=== PATIENT | female | born 1990 | race Caucasian/White ===

== ENCOUNTER 2018-01-04 10:26 | Emergency (ER) | payer BC, OTHER ==
[2018-01-04 10:57] VITALS: BP 120/75
--- NOTE | 2018-01-04 11:27 | UC ---
Nausea/Vomiting/Diarrhea HPI - HPI Summary HPI Summary: 27-year-old female presents with 5 day history of watery diarrhea after returning from travel to [facility]. She is reporting approximately 6-7 episodes of foul-smelling diarrhea daily. Tends to be worse in the morning and evenings. She [place] she did drink some water from a picture that she cannot confirm was from a bottled source and also reports eating salads that may have been washed in tap water. No recent antibiotic use. Associated with some mild lower abdominal cramping. Denies fever, chills, nausea, vomiting, blood in stools, dysuria, frequency, or urgency. She has used [id number] Imodium and Pepto-Bismol without relief in symptoms. Last menstrual period was approximately 2 weeks ago. She has been sexually active. Does not use any contraception other than the pullout method. - History of Current Complaint Chief Complaint: UCGI Stated Complaint: ABDOMINAL PAIN,DIARRHEA Time Seen by Provider: 01/04/18 11:01 Hx Obtained From: Patient Hx Last Menstrual Period: "two weeks ago" Onset/Duration: Gradual Onset, Lasting Days Severity Initially: Mild Severity Currently: Mild Pain Intensity: 0 Location: Other - lower abdominal Character: Cramping Aggravating Factor(s): Nothing Alleviating Factor(s): Nothing Diarrhea Presence: Yes Diarrhea Frequency: Other - 6-7 episodes daily Diarrhea Characteristics: Watery, Malodorous - Allergies/Home Medications Allergies/Adverse Reactions: Allergies Allergy/AdvReac Type Severity Reaction Status Date / Time No Known Allergies Allergy Verified 01/04/18 10:47 Home Medications: Home Medications Loperamide CAP* [Imodium CAP*] 1 - 2 mg PO SEE INSTRUCTIONS PRN 01/04/18 [ History Confirmed 01/04/18] Faucett-3 Fatty Acids/Fish Oil [Fish Oil 1,000 mg Softgel] 1 each PO DAILY [History Confirmed 01/04/18] Vitamin THERAPEUTIC TAB* [Theragran TAB*] 1 tab PO DAILY 01/04/18 [History Confirmed 01/04/18] PMH/Surg Hx/FS Hx/Imm Hx Previously Healthy: Yes - Surgical History Surgical History: None - Family History Known Family History: Positive: Other - Social History Occupation: Employed Full-time Lives: With Family Alcohol Use: Weekly Substance Use Type: None Smoking Status (MU): Never Smoked Tobacco Review of Systems Constitutional: Negative Skin: Negative Gastrointestinal: Abdominal Pain, Diarrhea Genitourinary: Negative Is Patient Immunocompromised?: No All Other Systems Reviewed And Are Negative: Yes Physical Exam Triage Information Reviewed: Yes Appearance: Well-Appearing, No Pain Distress, Well-Nourished Vital Signs: Initial Vital Signs Temp 98.3 F 01/04/18 10:45 Pulse 78 01/04/18 10:45 Resp 16 01/04/18 10:45 BP 120/75 01/04/18 10:45 Pulse Ox 100 01/04/18 10:45 Vital Signs Reviewed: Yes Respiratory: Positive: No respiratory distress Cardiovascular: Positive: Pulses Normal, Brisk Capillary Refill Abdomen Description: Positive: Nontender, No Organomegaly, Soft. Negative: CVA Tenderness (R), CVA Tenderness (L), Distended, Guarding Bowel Sounds: Positive: Present Neurological: Positive: Alert Skin Exam: Normal Naus/Vom/Diarrhea Course/Dx - Course Course Of Treatment: 27-year-old female with 5 day history of watery, malodorous diarrhea following traveled to [facility]. She is tried over-the- counter antimotility medications without improvement in symptoms. She stated resort but does state that drink water that she cannot confirm was bottled and also at salads that may have been washed with tap water. Symptoms are likely a traveler's diarrhea and will treat with a single dose of azithromycin 1000 mg. Discussed warning symptoms that would require immediate evaluation the emergency room with the patient. Verbalized understanding and agreement with plan of care. - Differential Dx/Diagnosis Provider Diagnoses: Traveler's diarrhea Condition At Discharge: Stable Discharge - Sign-Out/Discharge Documenting (check all that apply): Patient Departure All imaging exams completed and their final reports reviewed: No Studies - Discharge Plan Condition: Stable Disposition: HOME Prescriptions: Azithromycin 1,000 mg PO ONCE #2 tablet Patient Education Materials: Traveler's Diarrhea (ED) Referrals: Tanya Ng MD [Primary Care Provider] - 3 Days (If no improvement in symptoms.) Additional Instructions: Your symptoms are very suspicious for a traveler's diarrhea therefore we will treat you accordingly. Take a Zithromax and 1000 mg once today. He may continue using the Imodium according to directions as needed for diarrhea. I would recommend that he stop using the Pepto-Bismol as this could mask symptoms of a more concerning problem. Push plenty of fluids to avoid dehydration. I would recommend you avoid beverages containing caffeine or artificial sweeteners as both of these can sometimes worsen diarrhea. You may eat a regular diet. Follow-up with your primary care provider in 3 days if there are no improvement in her symptoms. Seek immediate medical attention if you develop fever greater than 100.5 F, become weak or dizzy, have increased abdominal pain, persistent vomiting, worsening of the diarrhea, blood in the stool, or any worsening of her symptoms. - Billing Disposition and Condition Condition: STABLE Disposition: Home
== END 2018-01-04 11:34 | disposition home or self-care (01) ==
LOC: UCCORT 10:26
DX: A09 Infectious gastroenteritis and colitis, unspecified (principal)
CPT/HCPCS: 99212; G0463